=== PATIENT | female | born 1945 | race Caucasian/White ===

== ENCOUNTER 2017-12-16 15:25 | Observation (INO) ==
[2017-12-16] MEDS ORDERED: Ipratropium/Albuterol Neb 3 ML IH ONE (15:50)
[2017-12-16] MEDS ORDERED: methylPREDNISolone 125 MG/2 ML VIAL IVP ONE (15:50)
[2017-12-16 16:18] LABS: Bilirubin,Urine Negative (Negative); Blood,Urine Trace-intact (Negative); Clarity,Urine Slightly Cloudy (Clear); Glucose,Urine (UA) Normal (Normal); Ketones,Urine Negative (Negative); Leukocyte Esterase,Urine Moderate (Negative); Nitrite,Urine Positive (Negative); Protein,Urine Negative (Neg-Trace); Specific Gravity,Urine 1.015 (1.010-1.025); Urobilinogen,Urine Normal (Normal)
[2017-12-16 16:23] LABS: Basophils # 0.1 K/mcL (0.0-0.2); Basophils % 0.4 %; Eosinophils # 0.4 K/mcL (0.0-0.6); Eosinophils % 3.5 %; Hemoglobin 12.3 g/dL (11.5-15.4); Immature Granulocytes % 0.3 % (0-4); Lymphocytes # 1.1 K/mcL (0.6-4.6); Lymphocytes % 9.9 %; Mean Corpuscular HGB Conc 33.2 g/dL (31.6-35.5); Mean Corpuscular Hemoglobin 33.7 pg (28.0-33.3); Mean Corpuscular Volume 101.4 fL (83.0-100.0); Mean Platelet Volume 8.6 fL (9.4-12.4); Monocytes # 0.8 K/mcL (0.0-1.3); Monocytes % 6.6 %; Neutrophils # 9.1 K/mcL (1.6-8.9); Platelet Count 182 K/mcL (140-400); Red Blood Count 3.65 M/mcL (3.82-4.97); Red Cell Distribution Width 12.5 % (11.5-14.5); Segmented Neutrophils % 79.3 %
[2017-12-16 16:23] LABS: Color,Urine Light Yellow (Yellow)
[2017-12-16 16:24] LABS: RBC,Urine 0-3 per hpf (0-3); WBC,Urine 30-50 per hpf (0-3)
[2017-12-16 16:25] LABS: Bacteria,Urine Many per hpf (None-Few); Hyaline Casts,Urine Few per lpf (None-Few); Mucus,Urine Few (Few); Squamous Epithelial Cell,Urine Few per lpf (None-Few)
[2017-12-16 16:33] LABS: INR 0.9; Prothrombin Time 10.5 Seconds (9.4-12.1)
[2017-12-16 16:36] LABS: Activated Partial Thrombo Time 27.1 Seconds (26.0-36.0)
--- NOTE | 2017-12-16 16:39 | Emergency Department Note ---
Disposition Clinical Impression: Acute exacerbation of chronic obstructive airways disease CHF exacerbation Qualifiers: Heart failure type: unspecified Qualified Code(s): I50.9 - Heart failure, unspecified UTI (urinary tract infection) Qualifiers: Urinary tract infection type: acute cystitis Hematuria presence: with hematuria Qualified Code(s): N30.01 - Acute cystitis with hematuria Disposition: Admitted As Inpatient Condition: Good Referrals: NONE,PCP [Non-Partnered Physician] - Forms: ED Satisfaction Letter Time of Disposition: 16:35 (Dr Desai accepted her for inpatient) SOB HPI - General Chief Complaint: ED Shortness of Breath/Dyspnea Stated Complaint: shortness of breath Time Seen by Provider: 12/16/17 15:39 Source: patient Mode of arrival: ambulatory Limitations: no limitations Nursing Notes Reviewed: Yes Vital Signs Reviewed: Yes - History of Present Illness Patient is a pleasant 72 yo F with past medical history significant for HTN, Dyslipidemia, CHF and COPD who is presenting to [facility] with a chief complaint off worsening respiratory symptoms in the past 10 days getting worse in the past day which prompted her to go to the urgent. We received a phone call from the urgent care due to the hypoxia when she am bulates. She usually takes 3 L nasal cannula but her sat drops to the 80s with mild exertion. She is very short of breath. She takes albuterol inhaler at home and states that recently she complained off cough. She denies fever but c/o chills and noted that she is febrile on admission. . Pt also denies any eye pain or visual disturbances. There is no sore throat, nasal drainages or facial congestion. There is no chest pain, palpitations or racing heart. There is no abdominal pain, nausea, vomiting or diarrhea. There is no urgency, frequency or dysuria. There is no muskulo-skeletal pain, arthralgia or back pain. Patient also denies any rash, edema or pruritus. There is no neurological manifestations, no headache, no vertigo or weakness. The patient also denies any anxiety, depression, hallucinations and has no homicidal or suicidal ideations. There is no polyuria, polydipsia or recent weight change. There is no easy bruising or bleeding. Review of other systems is otherwise negative except above. Pt Subjective Complaint: shortness of breath, cough Onset (ago): day(s) (10) Context: recent illness Severity: moderate Consistency/Duration: gradually worsening Improves with: bronchodilators - Related Data Home Medications Medication Instructions Recorded Confirmed Atorvastatin Calcium [Lipitor] 20 mg PO HS 01/31/16 12/16/17 Febuxostat [Uloric] 80 mg PO DAILY 01/31/16 12/16/17 Gabapentin [Neurontin] 300 mg PO TID 01/31/16 12/16/17 Multivitamin [One Daily Essential] 1 tab PO DAILY 01/31/16 12/16/17 Tramadol HCl [Ultram] 50 mg PO QID PRN 01/31/16 12/16/17 Aspirin [Lo-Dose Aspirin EC] 81 mg PO DAILY 06/07/16 12/16/17 Carvedilol 3.125 mg PO BID 06/07/16 12/16/17 Albuterol Sulfate [Ventolin Hfa] 2 puff IH Q4H PRN 09/04/16 12/16/17 Buspirone HCl [Buspar] 15 mg PO BID 12/16/17 12/16/17 Cholecalciferol (D-3) [Vitamin D] 1,000 unit PO DAILY 12/16/17 12/16/17 Losartan [Cozaar] 25 mg PO DAILY 12/16/17 12/16/17 [place]-3 Fatty Acids [Fish Oil] 300 mg PO DAILY 12/16/17 12/16/17 Tocilizumab [Actemra] 400 mg IV QMONTH 12/16/17 12/16/17 Previous Rx's Medication Instructions Recorded Furosemide [Lasix] 40 mg PO BID #60 tablet 09/06/16 amLODIPine [Norvasc] 5 mg PO DAILY #30 tab 09/06/16 Allergies Allergy/AdvReac Type Severity Reaction Status Date / Time No Known Allergies Allergy Verified 12/16/17 15:27 All systems ED: reviewed and negative except as stated. Review of Systems: As Per HPI Constitutional: Denies: fever, chills, weakness, weight change Eyes: Denies: eye pain, eye discharge, vision change ENT ED: Reports: congestion. Denies: ear pain, throat pain, dental pain, hearing loss, epistaxis, dysphagia Cardiovascular: Reports: dyspnea on exertion, orthopnea. Denies: chest pain, palpitations, edema, syncope Respiratory: Reports: cough, dyspnea, wheezes. Denies: hemoptysis, stridor Gastrointestinal: Denies: abdominal pain, nausea, vomiting, diarrhea, constipation, hematemesis, melena, hematochezia Genitourinary: Denies: dysuria, frequency, hematuria, discharge Musculoskeletal: Denies: back pain, neck pain, arthralgia, myalgia Integumentary: Denies: rash, abrasion, lesions Neurological: Denies: headache, weakness, numbness, paresthesias, confusion, abnormal gait, vertigo Psychiatric: Denies: anxiety, depression, suicidal thoughts, homicidal thoughts, auditory hallucinations, visual hallucinations Endocrine: Denies: fatigue Hematological/Lymphatic: Denies: easy bleeding, easy bruising Allergic/Immunologic: Denies: facial swelling, urticaria Past Medical History - Past Medical History Medical history: Reports: arthritis, CHF, COPD, hyperlipidemia, hypertension Surgical history: Reports: cholecystectomy, knee replacement, other Psychiatric history: Reports: anxiety - Social History Smoking Status: Never smoker Smokeless Tobacco Status: No Alcohol use: Reports: none Drug use: Reports: none Physical Exam - General Limitations: no limitations General appearance: alert - Head Head exam: atraumatic, normocephalic, normal inspection - Eye Eye exam: Present: normal appearance, PERRL, EOMI - Expanded Eye Exam Pupils: Left: reactive - ENT ENT exam: normal exam, normal oropharynx, mucous membranes moist - Expanded ENT Exam External ear exam: Present: normal external inspection Mouth exam: Present: normal external inspection Teeth exam: Present: normal inspection Throat exam: Present: normal inspection - Neck Neck exam: Present: normal inspection, full ROM, trachea midline - Chest Chest inspection: Present: normal inspection, symmetric chest wall rise - Respiratory Respiratory exam: Present: respiratory distress, wheezes, prolonged expiratory phase - Cardiovascular Cardiovascular exam: Present: regular rate, normal rhythm, normal heart sounds - Abdominal Exam Abdominal exam: Present: soft, Non-Tender. Absent: tenderness, distention, guarding, rebound, rigidity - Extremities Exam Extremities exam: Present: normal inspection, full ROM. Absent: tenderness, pedal edema - Expanded Upper Extremity Exam Shoulder exam: Present: normal inspection, full ROM Arm exam: Present: normal inspection, full ROM Elbow exam: Present: normal inspection, full ROM Forearm/Wrist exam: Present: normal inspection, full ROM Hand exam: Present: normal inspection, full ROM Vascular exam: Normal: capillary refill, radial pulse - Expanded Lower Extremity Exam Hip/Pelvis exam: Present: normal inspection, full ROM Upper leg exam: Present: normal inspection, full ROM Knee exam: Present: normal inspection, full ROM Lower leg exam: Present: normal inspection, full ROM Ankle exam: Present: normal inspection, full ROM Foot/toe exam: Present: normal inspection, full ROM Neurovascular/Tendon exam: Absent: motor deficit, sensory deficit, tendon deficit - Back Exam Back exam: Present: normal inspection, full ROM. Absent: tenderness - Neurological Exam Neurological exam: Present: alert, oriented X3 - Expanded Neurological Exam Patient oriented to: Present: person, place, time Coma Scale Eye Opening: Spontaneous Coma Scale Motor Response: Obeys Commands Coma Scale Verbal Response: Oriented Coma Scale Total: 15 - Psychiatric Psychiatric exam: Present: normal affect, normal mood - Skin Skin exam: Present: warm, dry, intact, normal color Course Vital Signs Temperature 100.5 F H 12/16/17 15:28 Pulse Rate 99 12/16/17 15:28 Respiratory Rate 20 12/16/17 15:28 Blood Pressure 179/92 12/16/17 15:28 O2 Sat by Pulse Oximetry 88 12/16/17 15:28 Temperature 100.5 F H 12/16/17 15:28 Pulse Rate 92 12/16/17 16:47 Respiratory Rate 18 12/16/17 16:47 Blood Pressure 153/44 12/16/17 16:47 O2 Sat by Pulse Oximetry 94 12/16/17 16:47 Oxygen Delivery Oxygen Delivery Nasal Cannula Shortness of Breath/Dyspnea - Differential Diagnosis Likely: acute exacerbation of chronic obstructive airways disease, congestive heart failure, pneumonia - Medical Records Medical records reviewed: Yes I reviewed the patient's medical records. - Lab Data Lab results reviewed: Yes I reviewed the patient's lab results. Result diagrams: 12/16/17 16:16 12/16/17 16:16 Lab Results 12/16/17 12/16/17 12/16/17 Range/Units 16:14 16:16 16:16 WBC 11.5 H (4.3-11.1) K/mcL RBC 3.65 L (3.82-4.97) M/mcL Hgb 12.3 (11.5-15.4) g/dL Hct 37.0 (35.3-44.9) % MCV 101.4 H (83.0-100.0) fL MCH 33.7 H (28.0-33.3) pg MCHC 33.2 (31.6-35.5) g/dL RDW 12.5 (11.5-14.5) % Plt Count 182 (140-400) K/mcL MPV 8.6 L (9.4-12.4) fL Immature Gran % 0.3 (0-4) % Seg Neutrophils % 79.3 % Lymphocytes % 9.9 % Monocytes % 6.6 % Eosinophils % 3.5 % Basophils % 0.4 % Neutrophils # 9.1 H (1.6-8.9) K/mcL Lymphocytes # 1.1 (0.6-4.6) K/mcL Monocytes # 0.8 (0.0-1.3) K/mcL Eosinophils # 0.4 (0.0-0.6) K/mcL Basophils # 0.1 (0.0-0.2) K/mcL PT (9.4-12.1) Seconds INR APTT (26.0-36.0) Seconds D-Dimer 1343 H (0-500) ng/mLFEU Sodium (136-145) mEq/L Potassium (3.5-5.1) mEq/L Chloride (98-107) mEq/L Carbon Dioxide (23-29) mEq/L BUN (8-23) mg/dL Creatinine (0.60-1.20) mg/dL Est GFR ( Amer) (> 60) Est GFR (Non-Af Amer) (> 60) BUN/Creatinine Ratio (6-26) Glucose (70-105) mg/dL Calculated Osmolality (280-300) Lactic Acid (0.5-2.2) mmol/L Calcium (8.6-10.3) mg/dL Total Bilirubin (0.3-1.0) mg/dL Direct Bilirubin (0.0-0.2) mg/dL Indirect Bilirubin (0.0-1.2) mg/dL AST (13-39) Units/L ALT (7-52) Units/L Alkaline Phosphatase (34-104) Units/L Troponin I (< 0.04) ng/mL B-Natriuretic Peptide (Less than 100) pg/mL Serum Total Protein (6.4-8.9) g/dL Albumin (3.5-5.7) g/dL Globulin (2.4-3.5) g/dL Albumin/Globulin Ratio (1.1-2.2) Urine Color Light Yellow (Yellow) Urine Clarity Slightly Cloudy A (Clear) Urine pH 6.0 (5.0-8.0) pH Units Ur Specific [place] 1.015 (1.010-1.025) Urine Protein Negative (Neg-Trace) mg/dL Urine Glucose (UA) Normal (Normal) mg/dL Urine Ketones Negative (Negative) mg/dL Urine Blood Trace-intact H (Negative) Urine Nitrite Positive A (Negative) Urine Bilirubin Negative (Negative) Urine Urobilinogen Normal (Normal) mg/dL Ur Leukocyte Esterase Moderate H (Negative) Urine Microscopic RBC 0-3 (0-3) per hpf Urine Microscopic WBC 30-50 H (0-3) per hpf Ur Squamous Epith Cells Few (None-Few) per lpf Urine Bacteria Many H (None-Few) per hpf Hyaline Casts Few (None-Few) per lpf Urine Mucus Few (Few) Ur Culture Indicated? YES A (NO) 12/16/17 12/16/17 12/16/17 Range/Units 16:16 16:16 16:16 WBC (4.3-11.1) K/mcL RBC (3.82-4.97) M/mcL Hgb (11.5-15.4) g/dL Hct (35.3-44.9) % MCV (83.0-100.0) fL MCH (28.0-33.3) pg MCHC (31.6-35.5) g/dL RDW (11.5-14.5) % Plt Count (140-400) K/mcL MPV (9.4-12.4) fL Immature Gran % (0-4) % Seg Neutrophils % % Lymphocytes % % Monocytes % % Eosinophils % % Basophils % % Neutrophils # (1.6-8.9) K/mcL Lymphocytes # (0.6-4.6) K/mcL Monocytes # (0.0-1.3) K/mcL Eosinophils # (0.0-0.6) K/mcL Basophils # (0.0-0.2) K/mcL PT (9.4-12.1) Seconds INR APTT (26.0-36.0) Seconds D-Dimer (0-500) ng/mLFEU Sodium 143 (136-145) mEq/L Potassium 4.4 (3.5-5.1) mEq/L Chloride 99 (98-107) mEq/L Carbon Dioxide 37 H (23-29) mEq/L BUN 51 H (8-23) mg/dL Creatinine 2.14 H (0.60-1.20) mg/dL Est GFR ( Amer) 27 L (> 60) Est GFR (Non-Af Amer) 23 L (> 60) BUN/Creatinine Ratio 24 (6-26) Glucose 142 H (70-105) mg/dL Calculated Osmolality 312 H (280-300) Lactic Acid 1.3 (0.5-2.2) mmol/L Calcium 9.4 (8.6-10.3) mg/dL Total Bilirubin 0.5 (0.3-1.0) mg/dL Direct Bilirubin 0.0 (0.0-0.2) mg/dL Indirect Bilirubin 0.5 (0.0-1.2) mg/dL AST 13 (13-39) Units/L ALT 11 (7-52) Units/L Alkaline Phosphatase 83 (34-104) Units/L Troponin I < 0.03 (< 0.04) ng/mL B-Natriuretic Peptide 47 (Less than 100) pg/mL Serum Total Protein 6.9 (6.4-8.9) g/dL Albumin 3.8 (3.5-5.7) g/dL Globulin 3.1 (2.4-3.5) g/dL Albumin/Globulin Ratio 1.2 (1.1-2.2) Urine Color (Yellow) Urine Clarity (Clear) Urine pH (5.0-8.0) pH Units Ur Specific [place] (1.010-1.025) Urine Protein (Neg-Trace) mg/dL Urine Glucose (UA) (Normal) mg/dL Urine Ketones (Negative) mg/dL Urine Blood (Negative) Urine Nitrite (Negative) Urine Bilirubin (Negative) Urine Urobilinogen (Normal) mg/dL Ur Leukocyte Esterase (Negative) Urine Microscopic RBC (0-3) per hpf Urine Microscopic WBC (0-3) per hpf Ur Squamous Epith Cells (None-Few) per lpf Urine Bacteria (None-Few) per hpf Hyaline Casts (None-Few) per lpf Urine Mucus (Few) Ur Culture Indicated? (NO) 12/16/17 Range/Units 16:16 WBC (4.3-11.1) K/mcL RBC (3.82-4.97) M/mcL Hgb (11.5-15.4) g/dL Hct (35.3-44.9) % MCV (83.0-100.0) fL MCH (28.0-33.3) pg MCHC (31.6-35.5) g/dL RDW (11.5-14.5) % Plt Count (140-400) K/mcL MPV (9.4-12.4) fL Immature Gran % (0-4) % Seg Neutrophils % % Lymphocytes % % Monocytes % % Eosinophils % % Basophils % % Neutrophils # (1.6-8.9) K/mcL Lymphocytes # (0.6-4.6) K/mcL Monocytes # (0.0-1.3) K/mcL Eosinophils # (0.0-0.6) K/mcL Basophils # (0.0-0.2) K/mcL PT 10.5 (9.4-12.1) Seconds INR 0.9 APTT 27.1 (26.0-36.0) Seconds D-Dimer (0-500) ng/mLFEU Sodium (136-145) mEq/L Potassium (3.5-5.1) mEq/L Chloride (98-107) mEq/L Carbon Dioxide (23-29) mEq/L BUN (8-23) mg/dL Creatinine (0.60-1.20) mg/dL Est GFR ( Amer) (> 60) Est GFR (Non-Af Amer) (> 60) BUN/Creatinine Ratio (6-26) Glucose (70-105) mg/dL Calculated Osmolality (280-300) Lactic Acid (0.5-2.2) mmol/L Calcium (8.6-10.3) mg/dL Total Bilirubin (0.3-1.0) mg/dL Direct Bilirubin (0.0-0.2) mg/dL Indirect Bilirubin (0.0-1.2) mg/dL AST (13-39) Units/L ALT (7-52) Units/L Alkaline Phosphatase (34-104) Units/L Troponin I (< 0.04) ng/mL B-Natriuretic Peptide (Less than 100) pg/mL Serum Total Protein (6.4-8.9) g/dL Albumin (3.5-5.7) g/dL Globulin (2.4-3.5) g/dL Albumin/Globulin Ratio (1.1-2.2) Urine Color (Yellow) Urine Clarity (Clear) Urine pH (5.0-8.0) pH Units Ur Specific [place] (1.010-1.025) Urine Protein (Neg-Trace) mg/dL Urine Glucose (UA) (Normal) mg/dL Urine Ketones (Negative) mg/dL Urine Blood (Negative) Urine Nitrite (Negative) Urine Bilirubin (Negative) Urine Urobilinogen (Normal) mg/dL Ur Leukocyte Esterase (Negative) Urine Microscopic RBC (0-3) per hpf Urine Microscopic WBC (0-3) per hpf Ur Squamous Epith Cells (None-Few) per lpf Urine Bacteria (None-Few) per hpf Hyaline Casts (None-Few) per lpf Urine Mucus (Few) Ur Culture Indicated? (NO) - Radiology Data Radiology results reviewed: Yes I reviewed the patient's radiology results. Negative - EKG Data EKG attestation: Yes I reviewed and interpreted this EKG. EKG shows normal: Reports: sinus rhythm Rate: Reports: normal Rhythm: Reports: NSR
[2017-12-16 16:44] LABS: Alanine Aminotransferase 11 Units/L (7-52); Albumin 3.8 g/dL (3.5-5.7); Albumin/Globulin Ratio 1.2 (1.1-2.2); Alkaline Phosphatase 83 Units/L (34-104); Aspartate Amino Transferase 13 Units/L (13-39); BUN/Creatinine Ratio 24 (6-26); Bilirubin,Indirect 0.5 mg/dL (0.0-1.2); Bilirubin,Total 0.5 mg/dL (0.3-1.0); Blood Urea Nitrogen 51 mg/dL (8-23); Calcium 9.4 mg/dL (8.6-10.3); Carbon Dioxide 37 mEq/L (23-29); Chloride 99 mEq/L (98-107); Globulin 3.1 g/dL (2.4-3.5); Glucose 142 mg/dL (70-105); Osmolality,Calculated 312 (280-300); Potassium 4.4 mEq/L (3.5-5.1); Sodium 143 mEq/L (136-145); Total Protein 6.9 g/dL (6.4-8.9); Troponin I < 0.03 ng/mL (< 0.04); eGFR For Non-African Americans 23 (> 60)
[2017-12-16] MEDS ORDERED: cefTRIAXone 2,000 MG in Water for inj. (sterile) 20 ML 20 ML IVP ONE (16:45)
[2017-12-16] MEDS ORDERED: traMADol 50 MG TABLET PO PRN ×2 (21:15→21:30)
[2017-12-16] MEDS: Furosemide 40 MG TABLET PO SCH (22:28)
[2017-12-16] MEDS: Gabapentin 300 MG CAPSULE PO SCH (22:31)
[2017-12-17 06:10] LABS: Basophils % 0.1 %; Hematocrit 36.4 % (35.3-44.9); Hemoglobin 12.1 g/dL (11.5-15.4); Immature Granulocytes % 0.3 % (0-4); Lymphocytes # 0.8 K/mcL (0.6-4.6); Lymphocytes % 6.3 %; Mean Corpuscular HGB Conc 33.2 g/dL (31.6-35.5); Mean Corpuscular Hemoglobin 33.2 pg (28.0-33.3); Mean Corpuscular Volume 99.7 fL (83.0-100.0); Mean Platelet Volume 8.8 fL (9.4-12.4); Monocytes # 0.1 K/mcL (0.0-1.3); Monocytes % 0.9 %; Platelet Count 191 K/mcL (140-400); Red Blood Count 3.65 M/mcL (3.82-4.97); Red Cell Distribution Width 12.3 % (11.5-14.5); Segmented Neutrophils % 92.4 %
[2017-12-17 06:33] LABS: Albumin 3.8 g/dL (3.5-5.7); Albumin/Globulin Ratio 1.3 (1.1-2.2); Bilirubin,Total 0.3 mg/dL (0.3-1.0); Calcium 9.4 mg/dL (8.6-10.3); Potassium 4.9 mEq/L (3.5-5.1); Total Protein 6.8 g/dL (6.4-8.9)
[2017-12-17] MEDS: Furosemide 40 MG TABLET PO SCH (09:02)
[2017-12-17] MEDS: Gabapentin 300 MG CAPSULE PO SCH (09:02)
[2017-12-17 10:12] VITALS: BP 164/77
--- NOTE | 2017-12-17 10:29 | Internal Med History&Physical ---
Date of Encounter: 12/17/17 Time of Encounter: 10:10 Assessment and Plan (1) UTI (urinary tract infection) Current visit: Yes Status: Acute She was given Rocephin in emergency room. Qualifiers: Urinary tract infection type: acute cystitis Hematuria presence: without hematuria Qualified Code(s): N30.00 - Acute cystitis without hematuria (2) Dyspnea Current visit: Yes Status: Acute Possible bronchitis. Chest x-ray showed no pneumonia. BN peptide was normal. Qualifiers: Dyspnea type: shortness of breath Qualified Code(s): R06.02 - Shortness of breath; R06.00 - Dyspnea, unspecified; R06.01 - Orthopnea Internal Medicine - H&P: HPI Chief complaint: Dyspnea Admitted From: Emergency Dept Plans for Post Hospital Care: Home History of present illness: Ms. Barron is a 72 year old female came to emergency room stating she had dyspnea present for approximately 10 days. She had minimal cough with little productivity. She denies any chest pain. She decided she should be checked so came to the [facility] urgent care from her home in [place]. Chest x-ray showed no abnormality and she was referred to emergency room for further evaluation. She was felt to have exacerbation of COPD and was admitted to [facility] floor for ongoing care needs. She states she feels improved now and back to her baseline. Her respiratory history is significant for being a lifelong nonsmoker. She reports she has been diagnosed with COPD and uses oxygen 24/7. She has SIRENA and uses CPAP at bedtime. Past Med Surg Social Fam HX - Past Medical History Medical history: arthritis, CHF, COPD, hyperlipidemia, hypertension Additional medical history: pneumonia Psychiatric history: anxiety - Past Surgical History Surgical History: cholecystectomy, knee replacement, other Additional surgical history: (R) ELBOW REPLACEMENT - Social History Smoking Status: Never smoker Smokeless Tobacco Status: No Alcohol use: none Drug use: none - Family History Son Name: ESA MILLS Age: 49 Hx Family Autoimmune Disorders: Yes (rheumatoid arthritis) Internal Medicine - H&P: Meds Atorvastatin Calcium [Lipitor] 20 mg PO HS 01/31/16 [History] Febuxostat [Uloric] 80 mg PO DAILY 01/31/16 [History] Gabapentin [Neurontin] 300 mg PO TID 01/31/16 [History] Multivitamin [One Daily Essential] 1 tab PO DAILY 12/26/16 [History] Tramadol HCl [Ultram] 50 mg PO QID PRN 01/31/16 [History] Aspirin [Lo-Dose Aspirin EC] 81 mg PO DAILY 06/07/16 [History] Carvedilol 3.125 mg PO BID 06/07/16 [History] Albuterol Sulfate [Ventolin Hfa] 2 puff IH Q4H PRN 09/04/16 [History] Furosemide [Lasix] 40 mg PO BID #60 tablet 09/06/16 [Rx] amLODIPine [Norvasc] 5 mg PO DAILY #30 tab 09/06/16 [Rx] Buspirone HCl [Buspar] 15 mg PO BID 12/16/17 [History] Cholecalciferol (D-3) [Vitamin D] 1,000 unit PO DAILY 12/16/17 [History] Losartan [Cozaar] 25 mg PO DAILY 12/16/17 [History] [place]-3 Fatty Acids [Fish Oil] 300 mg PO DAILY 12/16/17 [History] Tocilizumab [Actemra] 400 mg IV QMONTH 12/16/17 [History] 3 Allergy/AdvReac Type Severity Reaction Status Date / Time No Known Allergies Allergy Verified 12/16/17 15:27 All Systems PM: A 10-system review of systems was performed and is negative for pertinent findings except as documented above in the HPI. Review of systems: Gen.: She states her weight has been stable the past few months Cardiovascular: She has history of hypertension. She reports a diagnosis of heart failure. An echocardiogram 03/13/2017 showed LVEF of 55-60%. There was reported mild LV diastolic dysfunction. The E/A ratio is 0.9. The interventricular septum and posterior wall thickness measurements were elevated at 1.15 and 1.2 cm respectively. There was mild tricuspid regurgitation. She denies DVT or pulmonary embolus. Respiratory: As per history of present illness GI: She has had cholecystectomy. She denies disorders of her liver or exocrine pancreas : She has chronic kidney disease and follows with a [place] dermatological surgeon. She denies other kidney or bladder disorders. Neurologic: She denies large distribution strokes or seizures. Endocrine: She has hyperlipidemia but denies diabetes or thyroid disease Hematology/oncology: She denies blood disorders cancers or anemia Psychiatric: She has anxiety but denies depression or other mental health issues [place] skeletal: She has gout, rheumatoid arthritis, and has had bilateral knee replacements and 2 surgeries on her right elbow. - Constitutional Vitals: Temp Pulse Resp BP Pulse Ox 97.8 F 93 16 164/77 94 12/17/17 10:11 12/17/17 10:11 12/17/17 10:11 12/17/17 10:11 12/17/17 10:11 Exam: Gen.: She is a well-developed morbidly obese female sitting in a chair at bedside who appears in no acute distress HEENT: Head is atraumatic and normocephalic. Eyes: EOMI. There is no scleral icterus. Mouth: Mucosa is moist. Neck: Supple and nontender. There is no thyromegaly or adenopathy noted. Heart: Regular without murmurs gallops or ectopics Lungs: No wheezes or crackles are heard. Abdomen: Soft and nontender. Exam is limited because she is in the seated position. She has a very large abdomen. Extremities: She has well-healed surgical scars over her knees and right elbow. There is no pitting edema. Dorsalis pedis and posttibial pulses are trace p alpable bilaterally. She has changes of rheumatoid arthritis in her hands. Neurologic: Mental status: She is talkative and a good historian. Cranial nerves: Smile is symmetric. Forehead wrinkles bilaterally. Tongue protrudes midline. EOMI. Motor: There is no pronator drift. Cerebellar: Finger to nose is intact bilaterally. Skin: Warm and dry Internal Med - H&P Results - Labs CBC & Chem 7: 12/17/17 05:32 12/17/17 05:32 Labs: Short CBC 12/16/17 12/17/17 Range/Units 16:16 05:32 WBC 11.5 H 11.9 H (4.3-11.1) K/mcL Hgb 12.3 12.1 (11.5-15.4) g/dL Hct 37.0 36.4 (35.3-44.9) % Plt Count 182 191 (140-400) K/mcL Neutrophils # 9.1 H 11.0 H (1.6-8.9) K/mcL BMP 12/16/17 12/17/17 16:16 05:32 Sodium 143 142 Potassium 4.4 4.9 Chloride 99 98 Carbon Dioxide 37 H 39 H BUN 51 H 51 H Creatinine 2.14 H 1.99 H Glucose 142 H 270 H Calcium 9.4 9.4 Cardiac Enzymes 12/16/17 Range/Units 16:16 Troponin I < 0.03 (< 0.04) ng/mL Liver Function 12/16/17 12/17/17 Range/Units 16:16 05:32 Total Bilirubin 0.5 0.3 (0.3-1.0) mg/dL Direct Bilirubin 0.0 (0.0-0.2) mg/dL AST 13 12 L (13-39) Units/L ALT 11 10 (7-52) Units/L Alkaline Phosphatase 83 80 (34-104) Units/L Albumin 3.8 3.8 (3.5-5.7) g/dL Urine 12/16/17 Range/Units 16:14 Urine Color Light Yellow (Yellow) Urine Clarity Slightly Cloudy A (Clear) Urine pH 6.0 (5.0-8.0) pH Units Ur Specific [place] 1.015 (1.010-1.025) Urine Protein Negative (Neg-Trace) mg/dL Urine Glucose (UA) Normal (Normal) mg/dL
--- NOTE | 2017-12-17 10:53 | Discharge Summary ---
Orders not resulted at time of discharge: Pending orders 12/16/17 16:14 Culture,Urine [RM] Stat Date of Encounter: 12/17/17 Time of Encounter: 10:10 - Discharge Diagnosis (1) UTI (urinary tract infection) Priority: Primary Status: Acute Qualifiers: Urinary tract infection type: acute cystitis Hematuria presence: without hematuria Qualified Code(s): N30.00 - Acute cystitis without hematuria (2) Dyspnea Priority: Secondary Status: Acute Qualifiers: Dyspnea type: shortness of breath Qualified Code(s): R06.02 - Shortness of breath; R06.00 - Dyspnea, unspecified; R06.01 - Orthopnea Hospital course: Ms. Barron is a 72 year old female who came to emergency room stating she had dyspnea present for approximately 10 days. She had minimal cough with little productivity. She denies any chest pain. She decided she should be checked so came to the [facility] urgent care from her home in [place]. Chest x-ray showed no abnormality and she was referred to emergency room for further evaluation. She was felt to have exacerbation of COPD and was admitted to [facility] floor for ongoing care needs. Initial orders were written by the emergency room physician. I saw her on December 17 and performed a history physical and discharge. When I saw her she stated her breathing had improved and she felt back to her baseline. I told her she possibly had bronchitis since chest x-ray showed no pneumonia. BN peptide was unremarkable. She had no clinical evidence of DVT. She felt stable for discharge home. She will be given Levaquin 500 milligrams daily with lactobacillus for 3 day treatment for UTI. She will follow with her PCP within 1 week. - Time Spent with Patient Total time spent providing and/or coordinating discharge services: - Discharge Medications Prescriptions: Lactobacillus [Culturelle] 1 each PO BID #6 cap.sprink levoFLOXacin [Levaquin] 500 mg PO DAILY #3 tablet Home Medications: Atorvastatin Calcium [Lipitor] 20 mg PO HS 01/31/16 [History] Febuxostat [Uloric] 80 mg PO DAILY 01/31/16 [History] Gabapentin [Neurontin] 300 mg PO TID 01/31/16 [History] Multivitamin [One Daily Essential] 1 tab PO DAILY 01/31/16 [History] Tramadol HCl [Ultram] 50 mg PO QID PRN 01/31/16 [History] Aspirin [Lo-Dose Aspirin EC] 81 mg PO DAILY 06/07/16 [History] Carvedilol 3.125 mg PO BID 06/07/16 [History] Albuterol Sulfate [Ventolin Hfa] 2 puff IH Q4H PRN 09/04/16 [History] Furosemide [Lasix] 40 mg PO BID #60 tablet 09/06/16 [Rx] amLODIPine [Norvasc] 5 mg PO DAILY #30 tab 09/06/16 [Rx] Buspirone HCl [Buspar] 15 mg PO BID 12/16/17 [History] Cholecalciferol (D-3) [Vitamin D] 1,000 unit PO DAILY 12/16/17 [History] Losartan [Cozaar] 25 mg PO DAILY 12/16/17 [History] Temple-3 Fatty Acids [Fish Oil] 300 mg PO DAILY 12/16/17 [History] Tocilizumab [Actemra] 400 mg IV QMONTH 12/16/17 [History] Lactobacillus [Culturelle] 1 each PO BID #6 cap.sprink 12/17/17 [Rx] levoFLOXacin [Levaquin] 500 mg PO DAILY #3 tablet 12/17/17 [Rx] Allergies/Adverse Reactions: Allergy/AdvReac Type Severity Reaction Status Date / Time No Known Allergies Allergy Verified 12/16/17 15:27 Date of admission: 12/16/17 18:18 Primary care physician: Robert Lawson Jr, MD - Constitutional Vitals: Temp Pulse Resp BP Pulse Ox 97.8 F 93 16 164/77 94 12/17/17 10:11 12/17/17 10:11 12/17/17 10:11 12/17/17 10:11 12/17/17 10:11 - Patient Status Disposition: Home, Self-Care Condition: Good - Discharge Instructions Follow Up With: Robert Lawson Jr, MD [Primary Care Provider] - 1 week - Diet and Activity Activity: resume usual activities as tolerated Diet: advance to your usual diet
--- NOTE | 2017-12-18 19:57 | Electrocardiograph Report ---
[address] [address] Test Date: 2017-12-16 Pat Name: Yolis Barron Department: [id number] Room: [facility] Gender: F Singe Winder: [id number] : 1945 Requested By: Ritika Morgan Order Number: [id number] Reading MD: Michelle Stubbs Measurements Intervals [place] Rate: 99 P: 22 FL: 173 QRS: 33 QRSD: 103 T: 38 QT: 340 QTc: 397 Interpretive Statements SINUS RHYTHM WITH SINUS ARRHYTHMIA NONSPECIFIC ST-WAVE ABNORMALITY Electronically Signed On 12-18-2017 19:56:06 EST by Michelle Stubbs
== END 2017-12-17 11:56 | disposition home or self-care (01) ==
LOC: EMEROOPIK 15:25 → INPPIK 15:25
PROVIDERS: ADMIT Internal Medicine; ATTEND Internal Medicine